=== PATIENT | male | born 1980 | race Caucasian/White ===

== ENCOUNTER 2020-12-07 10:20 | Emergency (ER) | payer OTHER ==
[2020-12-07 10:30] VITALS: BP 136/90; PULSE 116
--- NOTE | 2020-12-07 11:03 | EDM.PDOC ---
ED HPI GENERAL MEDICAL PROBLEM - General Chief Complaint: Respiratory Problem Stated Complaint: fever, loss of smell Time Seen by Provider: 12/07/20 10:45 Source of Information: Reports: Patient History Limitations: Reports: No Limitations - History of Present Illness INITIAL COMMENTS - FREE TEXT/NARRATIVE: Developed sinus congestion/cold symptoms on December 04. Now notices that he lost his sense of taste/smell. 100.7 degree temp at home. No SOB/cough/GI changes. No other acute complaints. Would like to get tested for Covid and needs [employer] form if positive. Does not want any sort of treatment/formal evaluation, just to be tested to see if he can go to work. - Related Data Allergies Allergy/AdvReac Type Severity Reaction Status Date / Time No Known Allergies Allergy Verified 11/23/16 16:57 Home Meds: Home Meds . [No Known Home Meds] 05/22/16 [History] Past Medical History HEENT History: Reports: None. Denies: Allergic Rhinitis, Hard of Hearing, Impaired Vision, Retinal Detachment Cardiovascular History: Reports: None. Denies: Aneurysm, Arrhythmia, Blood Clots/VTE/DVT, CAD, Heart Murmur, High Cholesterol, Hypertension, Syncope Respiratory History: Reports: None. Denies: Asthma, Intubation, Previous, PE, Pneumothorax Gastrointestinal History: Reports: None. Denies: Celiac Disease, Chronic Constipation, Chronic Diarrhea, Fecal Incontinence, Gastritis, GERD, GI Bleed, Hepatitis, Inflammatory Bowel Disease, Irritable Bowel Syndrome, Jaundice, Pancreatitis, PUD Genitourinary History: Reports: None. Denies: BPH, Chronic Renal Insuffiency, Renal Calculus, STD, Urinary Incontinence, UTI, Recurrent Musculoskeletal History: Reports: Fracture, Osteoarthritis, Other (See Below) Other Musculoskeletal History: Distal phalangeal fracture of digit #3 of the right hand on 12/26/12, middle phalangeal fractures of digits #3 and 4 of the right hand on 07/30/13, left fifth metatarsal fracture on 05/22/16, lower sternal fracture on 07/31/13 Neurological History: Reports: None. Denies: Cerebral Aneurysms, Concussion, CVA, Headaches, Chronic, Head Trauma, Migraines, Neuropathy, Peripheral, Seizure, TIA, Vertigo Psychiatric History: Reports: None. Denies: Abuse, Victim of, ADD, ADHD, Addiction, Anxiety, Depression, Psych Hospitalization(s), PTSD, Suicide Attempt, Suicidal Ideation Endocrine/Metabolic History: Reports: None. Denies: Diabetes, Type I, Diabetes, Type II, Hypothyroidism, IDDM Hematologic History: Reports: None. Denies: Anemia, Blood Transfusion(s) Immunologic History: Reports: None. Denies: AIDS, HIV, SLE Oncologic (Cancer) History: Reports: None. Denies: Basal Cell Carcinoma, Hodgkin's Lymphoma, Leukemia, Lymphoma, Malignant Melanoma, Non-Hodgkin's Lymphoma, Squamous Cell Carcinoma Dermatologic History: Reports: None. Denies: Eczema, Psoriasis - Infectious Disease History Infectious Disease History: Reports: Chicken Pox - Past Surgical History HEENT Surgical History: Reports: Oral Surgery, Other (See Below) GI Surgical History: Reports: Appendectomy, Other (See Below) Male Surgical History: Reports: Circumcision, Other (See Below) Musculoskeletal Surgical History: Reports: ORIF, Other (See Below) Social & Family History - Family History Family Medical History: No Pertinent Family History - Caffeine Use Caffeine Use: Reports: Soda (2 sodas per day). Denies: Coffee, Energy Drinks, Tea - Living Situation & Occupation Living situation: Reports: Occupation: Employed ED ROS GENERAL - Review of Systems Review Of Systems: See Below HEENT: Reports: Rhinitis, Sinus Problem, Other (loss taste/smell) Respiratory: Denies: Shortness of Breath, Cough, Sputum GI/Abdominal: Reports: No Symptoms Musculoskeletal: Reports: Other (no acute changes reported. ) Skin: Reports: No Symptoms Neurological: Reports: No Symptoms ED EXAM, GENERAL - Physical Exam Exam: See Below Exam Limited By: No Limitations General Appearance: Alert, WD/WN, No Apparent Distress Eye Exam: Bilateral Eye: EOMI, PERRL Ears: Hearing Grossly Normal Throat/Mouth: Normal Voice, No Airway Compromise Head: Atraumatic, Normocephalic Neck: Supple Neurological: Alert, Oriented, Normal Cognition, Normal Gait Psychiatric: Normal Affect, Normal Mood Skin Exam: Normal Color Course - Vital Signs Last Recorded V/S: Last Vital Signs Temp 37.8 C 12/07/20 10:27 Pulse 116 H 12/07/20 10:27 Resp 18 12/07/20 10:27 BP 136/90 12/07/20 10:27 Pulse Ox 100 12/07/20 10:27 - Orders/Labs/Meds Orders: Active Orders 24 hr Category Date Time Status CORONAVIRUS COVID-19 NAOMY [MOLEC] Stat Lab 12/07/20 10:29 Ordered CORONAVIRUS COVID-19 NAOMY [MOLEC] Stat Lab 12/07/20 10:45 Received Labs: Laboratory Tests 12/07/20 Range/Units 10:45 SARS-CoV-2 Ag (Rapid) Negative (NEGATIVE) - Re-Assessments/Exams Free Text/Narrative Re-Assessment/Exam: 12/07/20 11:04 Rapid strep negative. Patient does not want to wait for back up test to be performed. OK to be discharge. Nursing will contact patient with results and [employer] slip will be given to patient for work excuse. Departure - Departure Time of Disposition: 10:59 Disposition: Home, Self-Care 01 Condition: Good Clinical Impression: Viral illness - Discharge Information *PRESCRIPTION DRUG MONITORING PROGRAM REVIEWED*: Not Applicable *COPY OF PRESCRIPTION DRUG MONITORING REPORT IN PATIENT TONY: Not Applicable Instructions: COVID-19 Frequently Asked Questions Referrals: Penny Benavidez PA-C [Primary Care Provider] - Additional Instructions: We will call you with your Covid test results. Follow up as needed if you have problems/concerns/worsening symptoms. Sepsis Event Note (ED) - Evaluation Sepsis Screening Result: Possible Sepsis Risk - Focused Exam Vital Signs: Vital Signs Temp Pulse Resp BP Pulse Ox 12/07/20 10:27 37.8 C 116 H 18 136/90 100 - My Orders Last 24 Hours: My Active Orders 12/07/20 10:29 CORONAVIRUS COVID-19 NAOMY [MOLEC] Stat 12/07/20 10:45 CORONAVIRUS COVID-19 NAOMY [MOLEC] Stat - Assessment/Plan Last 24 Hours: My Active Orders 12/07/20 10:29 CORONAVIRUS COVID-19 NAOMY [MOLEC] Stat 12/07/20 10:45 CORONAVIRUS COVID-19 NAOMY [MOLEC] Stat
== END 2020-12-07 11:00 | disposition home or self-care (01) ==
LOC: LL.ED 10:20
DX: B34.9 Viral infection, unspecified (principal); Z20.822 Contact with and (suspected) exposure to COVID-19
CPT/HCPCS: 36415; 87426; 99282; 99283; U0002